=== PATIENT | female | born 1990 | race Caucasian/White ===

== ENCOUNTER 2019-06-19 17:15 | Emergency (ER) | payer SELFPAY ==
[2019-06-19 18:08] VITALS: BP 165/103
--- NOTE | 2019-06-19 18:44 | ER Document Report ---
ED Medical Screen (RME) - General Chief Complaint: Abdominal Pain Stated Complaint: ABDOMINAL PAIN Time Seen by Provider: 06/19/19 18:36 Mode of Arrival: Ambulatory Information source: Patient Notes: 28-year-old female presented to ED for complaint of lower abdominal pain nausea and headache. She also has fatigue and chills with no fevers. She states the symptoms have been for the last 2 days. She denies any bowel bladder or vaginal signs or symptoms. She states her last menstrual period was last month but she does not know the date. She does have a history of high blood pressure and is not taking her blood pressure medicine because she "left it at home "she states she does not remember what her blood pressure medication is. She states she smokes half pack a day drinks monthly and uses marijuana. 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 Patient is alert oriented respirations regular and unlabored speaking in full sentences. I have greeted and performed a rapid initial assessment of this patient. A comprehensive ED assessment and evaluation of the patient, analysis of test results and completion of medical decision making process will be conducted by an additional ED providers. Dictation of this chart was performed using voice recognition software; therefore, there may be some unintended grammatical errors. TRAVEL OUTSIDE OF THE [place] IN LAST 30 DAYS: No - Related Data Allergies/Adverse Reactions: No Known Allergies Allergy (Verified 06/19/19 17:17) Past Medical History - Social History Frequency of alcohol use: None Drug Abuse: Marijuana Renal/ Medical History: Denies: Hx Peritoneal Dialysis Past Surgical History: Reports: Hx Tubal Ligation Physical Exam - Vital signs Vitals: Temp Pulse Resp BP Pulse Ox 98.5 F 76 16 165/103 H 100 06/19/19 18:05 06/19/19 18:05 06/19/19 18:05 06/19/19 18:05 06/19/19 18:05 Course - Vital Signs Vital signs: Temp Pulse Resp BP Pulse Ox 98.5 F 76 16 165/103 H 100 06/19/19 18:05 06/19/19 18:05 06/19/19 18:05 06/19/19 18:05 06/19/19 18:05
[2019-06-19 19:21] LABS: ABSOLUTE MONOCYTES (AUTO) 0.7 10^3/uL (0.1-1.4); ABSOLUTE NEUT (AUTO) 2.9 10^3/uL (1.7-8.2); BASOPHILS % (AUTO) 0.4 % (0-2); EOSINOPHILS % (AUTO) 0.7 % (0-6); HEMATOCRIT 42.9 % (36.0-47.0); HEMOGLOBIN 14.5 g/dL (12.0-15.5); LYMPHOCYTES % (AUTO) 45.5 % (13-45); MEAN CORPUSCULAR HEMOGLOBIN 32.5 pg (27.0-33.4); MEAN CORPUSCULAR HGB CONC 33.8 g/dL (32.0-36.0); MEAN CORPUSCULAR VOLUME 96 fl (80-97); MONOCYTES % (AUTO) 9.9 % (3-13); PLATELET COUNT 202 10^3/uL (150-450); RED BLOOD COUNT 4.46 10^6/uL (3.72-5.28); RED CELL DISTRIBUTION WIDTH 15.5 % (11.5-14.0); SEGMENTED NEUTROPHILS % (AUTO) 43.5 % (42-78); TOTAL CELLS COUNTED % (AUTO) 100 %; WHITE BLOOD COUNT 6.6 10^3/uL (4.0-10.5)
[2019-06-19 19:27] LABS: ALANINE AMINOTRANSFERASE 17 U/L (9-52); ALBUMIN 4.2 g/dL (3.5-5.0); ALKALINE PHOSPHATASE 59 U/L (38-126); ANION GAP 8 (5-19); ASPARTATE AMINO TRANSFERASE 20 U/L (14-36); BILIRUBIN,DIRECT 0.1 mg/dL (0.0-0.4); BILIRUBIN,TOTAL 0.2 mg/dL (0.2-1.3); BLOOD UREA NITROGEN 12 mg/dL (7-20); CALCIUM 9.2 mg/dL (8.4-10.2); CARBON DIOXIDE 28 mmol/L (22-30); CHLORIDE 105 mmol/L (98-107); GLUCOSE 73 mg/dL (75-110); POTASSIUM 3.8 mmol/L (3.6-5.0); TOTAL PROTEIN 7.2 g/dL (6.3-8.2)
[2019-06-19 19:38] LABS: APPEARANCE,URINE SLIGHTLY-CLOUDY; BILIRUBIN,URINE NEGATIVE (NEGATIVE); COLOR,URINE YELLOW; GLUCOSE, URINE NEGATIVE (NEGATIVE); KETONES,URINE NEGATIVE (NEGATIVE); LEUKOCYTE ESTERASE,URINE NEGATIVE (NEGATIVE); NITRITE,URINE NEGATIVE (NEGATIVE); PROTEIN,URINE NEGATIVE (NEGATIVE); URINE SPECIFIC GRAVITY 1.028
--- NOTE | 2019-06-19 21:53 | ER Document Report ---
ED General - General Chief Complaint: Abdominal Pain Stated Complaint: ABDOMINAL PAIN Time Seen by Provider: 06/19/19 18:36 Mode of Arrival: Ambulatory TRAVEL OUTSIDE OF THE [place] IN LAST 30 DAYS: No - HPI Notes: Patient is a 28-year-old female that presents to the emergency department for chief complaint of abdominal pain, muscle aches and headache. Patient reports symptoms have been ongoing for the last 2 days. She reports a mild diffuse abdominal cramping and bloating sensation. She is having a headache that is throbbing in nature and located in her bilateral frontal re gion. She denies any associated fever, neck pain, vision changes, numbness or weakness. Patient has taken Tylenol and a friend's Percocet at home for her symptoms and reports minimal improvement. Her last dose of medication for symptoms was this morning. She denies any vomiting or diarrhea. She does states she is having small firm stools and may be constipated. Patient states she is concerned she might be but has had a tubal ligation in the past. Her LMP was last month but has been irregular. Patient also reports concern that her blood pressure is elevated. She states she has a prescription ready to be picked up at her pharmacy back home but will be in town for another week. Past Medical History: Hypertension Past Surgical History: Tubal ligation Social History: Occasional marijuana. Daily tobacco. Occasional alcohol. Family History: Reviewed and noncontributory for presenting illness Allergies: Reviewed, see documented allergy list. REVIEW OF SYSTEMS: CONSTITUTIONAL : No fever chills diaphoresis No recent illness EENT: No vision changes No congestion No sore throat CARDIOVASCULAR: No chest pain No palpitations RESPIRATORY: No shortness of breath No cough No difficulty breathing GASTROINTESTINAL: abdominal pain No nausea No vomiting No diarrhea Constipation GENITOURINARY: No dysuria No hematuria No difficulty urinating MUSCULOSKELETAL: No back pain leg pain arm pain SKIN: No rashes No lesions LYMPHATIC: No swollen, enlarged glands. NEUROLOGICAL: No lightheadedness headache No weakness No paresthesias PSYCHIATRIC: No anxiety No depression PHYSICAL EXAMINATION: Vital signs reviewed, nursing noted reviewed. GENERAL: Well-appearing, well-nourished and in no acute distress. HEAD: Atraumatic, normocephalic. EYES: Eyes appear normal, extraocular movements intact, sclera anicteric, conj unctiva are normal. ENT: nares patent, oropharynx clear without exudates. Moist mucous membranes. NECK: nontender, Normal range of motion, supple without lymphadenopathy LUNGS: Breath sounds clear to auscultation bilaterally and equal. No wheezes rales or rhonchi. HEART: Regular rate and rhythm without murmurs ABDOMEN: Mild distention, soft, nontender. No rebound, guarding, or rigidity. No masses appreciated. EXTREMITIES: Nontender, good range of motion, no pitting or edema. NEUROLOGICAL: No focal neurological deficits. Moves all extremities spontaneously Motor and sensory grossly intact on exam. PSYCH: Normal mood, normal affect. SKIN: Warm, Dry, normal turgor, no rashes or lesions noted on exposed skin - Related Data Allergies/Adverse Reactions: No Known Allergies Allergy (Verified 06/19/19 17:17) Past Medical History - General Information source: Patient - Social History Smoking Status: Current Every Day Smoker Frequency of alcohol use: None Drug Abuse: Marijuana Family History: Reviewed & Not Pertinent Patient has suicidal ideation: No Patient has homicidal ideation: No Renal/ Medical History: Denies: Hx Peritoneal Dialysis Past Surgical History: Reports: Hx Tubal Ligation Physical Exam - Vital signs Vitals: Temp Pulse Resp BP Pulse Ox 98.5 F 76 16 165/103 H 100 06/19/19 18:05 06/19/19 18:05 06/19/19 18:05 06/19/19 18:05 06/19/19 18:05 Course - Re-evaluation Re-evalutation: 06/19/19 21:51 Vitals reviewed. Nursing notes reviewed. Patient is afebrile and nontoxic in appearance. She does have elevated blood pressure secondary to her noncompliance with home medications. I did advise that she contact the pharmacy back home and have them transfer her prescription to a pharmacy in [facility] so she can begin taking her medication. Patient does not know what the medication is called for me to be able to give her a dose tonight. Patient has no focal neurologic deficits and her headache is mild, I am not clinically suspicious for intracranial hemorrhage and feel the risk of radiation is higher than the benefits at this point. She has no signs of endorgan damage on lab work to necessitate further management of her hypertension in the emergency room. Patient appears well-hydrated, she has no renal insufficiency or electrolyte derangement. Urinalysis is negative and she is not currently . Patient's headache, muscle aches and abdominal pain likely viral in nature. She may also have a component of constipation and was advised to try MiraLAX. At this point her abdominal exam is nontender and benign and further imaging not currently indicated. Patient counseled on return precautions. He is stable at discharge Laboratory 06/19/19 06/19/19 06/19/19 18:40 18:40 18:40 WBC 6.6 RBC 4.46 Hgb 14.5 Hct 42.9 MCV 96 MCH 32.5 MCHC 33.8 RDW 15.5 H Plt Count 202 Seg Neutrophils % 43.5 Lymphocytes % 45.5 H Monocytes % 9.9 Eosinophils % 0.7 Basophils % 0.4 Absolute Neutrophils 2.9 Absolute Lymphocytes 3.0 Absolute Monocytes 0.7 Absolute Eosinophils 0.0 Absolute Basophils 0.0 Sodium 140.6 Potassium 3.8 Chloride 105 Carbon Dioxide 28 Anion Gap 8 BUN 12 Creatinine 0.65 Est GFR ( Amer) > 60 Est GFR (Non-Af Amer) > 60 Glucose 73 L Calcium 9.2 Total Bilirubin 0.2 Direct Bilirubin 0.1 Neonat Total Bilirubin Not Reportable Neonat Direct Bilirubin Not Reportable Neonat Indirect Bili Not Reportable AST 20 ALT 17 Alkaline Phosphatase 59 Total Protein 7.2 Albumin 4.2 Serum HCG, Qual NEGATIVE Urine Color Urine Appearance Urine pH Ur Specific [place] Urine Protein Urine Glucose (UA) Urine Ketones Urine Blood Urine Nitrite Urine Bilirubin Urine Urobilinogen Ur Leukocyte Esterase Urine WBC (Auto) Urine RBC (Auto) Squamous Epi Cells Auto Urine Mucus (Auto) Urine Ascorbic Acid 06/19/19 18:40 WBC RBC Hgb Hct MCV MCH MCHC RDW Plt Count Seg Neutrophils % Lymphocytes % Monocytes % Eosinophils % Basophils % Absolute Neutrophils Absolute Lymphocytes Absolute Monocytes Absolute Eosinophils Absolute Basophils Sodium Potassium Chloride Carbon Dioxide Anion Gap BUN Creatinine Est GFR ( Amer) Est GFR (Non-Af Amer) Glucose Calcium Total Bilirubin Direct Bilirubin Neonat Total Bilirubin Neonat Direct Bilirubin Neonat Indirect Bili AST ALT Alkaline Phosphatase Total Protein Albumin Serum HCG, Qual Urine Color YELLOW Urine Appearance SLIGHTLY-CLOUDY Urine pH 6.0 Ur Specific [place] 1.028 Urine Protein NEGATIVE Urine Glucose (UA) NEGATIVE Urine Ketones NEGATIVE Urine Blood NEGATIVE Urine Nitrite NEGATIVE Urine Bilirubin NEGATIVE Urine Urobilinogen 2.0 H Ur Leukocyte Esterase NEGATIVE Urine WBC (Auto) 3 Urine RBC (Auto) 1 Squamous Epi Cells Auto <1 Urine Mucus (Auto) OCC Urine Ascorbic Acid NEGATIVE 06/19/19 21:53 - Vital Signs Vital signs: Temp Pulse Resp BP Pulse Ox 98.5 F 76 16 165/103 H 100 06/19/19 18:05 06/19/19 18:05 06/19/19 18:05 06/19/19 18:05 06/19/19 18:05 - Laboratory Result Diagrams: 06/19/19 18:40 06/19/19 18:40 Laboratory results interpreted by me: 06/19/19 06/19/19 06/19/19 18:40 18:40 18:40 RDW 15.5 H Lymphocytes % 45.5 H Glucose 73 L Urine Urobilinogen 2.0 H Discharge - Discharge Clinical Impression: Abdominal pain Qualifiers: Abdominal location: generalized Qualified Code(s): R10.84 - Generalized abdominal pain Headache Qualifiers: Headache type: unspecified Headache chronicity pattern: acute headache Intractability: not intractable Qualified Code(s): R51 - Headache Hypertension Qualifiers: Hypertension type: unspecified Qualified Code(s): I10 - Essential (primary) hypertension Condition: Stable Disposition: HOME, SELF-CARE Instructions: Abdominal Pain ([facility]), Headache ([facility]) Additional Instructions: Please return to the emergency department if you have any worsening, or concern of your symptoms. Please return to the emergency department if you develop chest pain, difficulty breathing, severe abdominal pain, or ongoing vomiting. Please follow-up with your primary care physician in 2-3 days and any other recommended physicians. If prescribed, take all medications as directed. If you have any questions or concerns do not hesitate to return the emergency department for evaluation. Contact your home pharmacy and request your blood pressure medication be transferred to a local pharmacy so you can begin taking it Take MiraLAX 1-2 times daily to help with constipation Continue taking Tylenol and ibuprofen as needed for pain Referrals: [facility] [Provider Group] - Follow up as needed
[2019-06-19] MEDS ORDERED: IBUPROFEN 600 MG TABLET PO ONE (21:56)
== END 2019-06-19 22:23 | disposition home or self-care (01) ==
LOC: ER 17:15
DX: I10 Essential (primary) hypertension (principal); T50.906A Underdosing of unspecified drugs, medicaments and biological substances, initial encounter; Z91.128 Patient's intentional underdosing of medication regimen for other reason; Z91.14 Patient's other noncompliance with medication regimen; R51 Headache; M79.10 Myalgia, unspecified site; N92.6 Irregular menstruation, unspecified; R10.84 Generalized abdominal pain; R68.83 Chills (without fever); R61 Generalized hyperhidrosis; Z98.51 Tubal ligation status; M79.603 Pain in arm, unspecified; M79.606 Pain in leg, unspecified; F17.200 Nicotine dependence, unspecified, uncomplicated; F12.10 Cannabis abuse, uncomplicated
CPT/HCPCS: 36415; 80053; 81001; 84703; 85025; 87086; 99283